=== PATIENT | female | born 1970 | race Caucasian/White ===

== ENCOUNTER 2020-12-27 12:52 | Emergency (ER) | payer OTHER ==
[2020-12-27] MEDS: Acetaminophen/HYDROcodone 325-5 MG Tab PO ONE (13:34)
--- NOTE | 2020-12-27 13:45 | EDM.PDOC ---
ED HPI GENERAL MEDICAL PROBLEM - General Chief Complaint: Upper Extremity Injury/Pain Stated Complaint: LT ARM Time Seen by Provider: 12/27/20 13:27 Source of Information: Reports: Patient History Limitations: Reports: No Limitations - History of Present Illness INITIAL COMMENTS - FREE TEXT/NARRATIVE: Helena is a 50 year old female who presents to ER with complaints of left arm pain after a fall. Patient states was up on a step stool taking a picture off the wall and lost her balance and fell. Admits used her arm to brace her fall and had instant pain. No other pain elsewhere. Applied ice and braced arm enroute here. Onset: Today Duration: Hour(s):, Constant Location: Reports: Upper Extremity, Left Quality: Reports: Ache, Throbbing Severity: Severe Improves with: Reports: Rest Worsens with: Reports: Movement Context: Reports: Trauma Associated Symptoms: Reports: No Other Symptoms Treatments PSYCHIATRIC AIDE: Reports: Cold Therapy Left Lower Arm Pain Score (Numeric/FACES): 7 - Related Data Allergies Allergy/AdvReac Type Severity Reaction Status Date / Time No Known Allergies Allergy Verified 12/27/20 13:03 Home Meds: Home Meds Cyclobenzaprine [Flexeril] 10 mg PO TID PRN #30 tab 12/27/20 [Rx] Past Medical History - Past Health History Medical/Surgical History: Denies Medical/Surgical History - Past Surgical History Female Surgical History: Reports: Hysterectomy Social & Family History - Tobacco Use Tobacco Use Status *Q: Never Tobacco User Review of Systems - Review of Systems Review Of Systems: See Below Constitutional: Reports: No Symptoms Eyes: Reports: No Symptoms Ears: Reports: No Symptoms Nose: Reports: No Symptoms Mouth/Throat: Reports: No Symptoms Respiratory: Reports: No Symptoms Cardiovascular: Reports: No Symptoms GI/Abdominal: Reports: No Symptoms Musculoskeletal: Reports: Arm Pain, Joint Pain Skin: Reports: No Symptoms Neurological: Reports: No Symptoms ED EXAM, GENERAL - Physical Exam Exam: See Below Exam Limited By: No Limitations General Appearance: Alert, WD/WN, No Apparent Distress Ears: Normal External Exam, Normal TMs Nose: Normal Inspection, Normal Mucosa, No Blood Throat/Mouth: Normal Inspection, Normal Oropharynx Head: Normocephalic Neck: Normal Inspection, Supple, Non-Tender Respiratory/Chest: No Respiratory Distress, Lungs Clear, Normal Breath Sounds Cardiovascular: Regular Rate, Rhythm, No Edema GI/Abdominal: Normal Bowel Sounds, Soft, Non-Tender Extremities: Arm Pain, Limited Range of Motion, Other (obvious deformity to left forearm) Neurological: Alert, Oriented Skin Exam: Warm, Dry Course - Vital Signs Last Recorded V/S: Last Vital Signs Temp 96.4 F L 12/27/20 12:57 Pulse 70 12/27/20 12:57 Resp 16 12/27/20 12:57 BP 130/80 12/27/20 12:57 Pulse Ox 95 12/27/20 12:57 - Orders/Labs/Meds Orders: Active Orders 24 hr Category Date Time Status Forearm 2V Lt [CR] Stat Exams 12/27/20 13:04 Taken Meds: Medications Discontinued Medications Generic Name Dose Route Start Last Admin Trade Name Holly PRN Reason Stop Dose Admin Hydrocodone Bitart/Acetaminophen 1 tab 12/27/20 13:29 12/27/20 13:34 Acetaminophen/Hydrocodone 325-5 Mg Tab PO 12/27/20 13:30 1 tab ONETIME ONE Administration - Re-Assessments/Exams Free Text/Narrative Re-Assessment/Exam: 12/27/20 1335-Xray positive for displaced distal radial fracture. One step pre- salvador splint applied. [place] given. Contacted [facility] and spoke with team nurse. Will have Dr. Dowling review xrays. 1400-Received call from [facility]. Dr. Dowling does feel will need reduction. Pre-op exam done, patient may proceed with procedure as a category II ASA risk due to age only. Patient advised of plan. [facility] will contact her directly to schedule time for consult tomorrow. Departure - Departure Time of Disposition: 14:10 Disposition: Home, Self-Care 01 Condition: Fair Clinical Impression: Fracture of radius Qualifiers: Encounter type: initial encounter Radius location: distal Fracture type: closed Laterality: left - Discharge Information *PRESCRIPTION DRUG MONITORING PROGRAM REVIEWED*: No *COPY OF PRESCRIPTION DRUG MONITORING REPORT IN PATIENT KRISTOPHER: No Instructions: Radial Fracture Referrals: PCP,Unknown [Primary Care Provider] - Forms: ED Department Discharge Additional Instructions: 1. Elevate arm to reduce swelling 2. Ice frequently today 3. [place] 1-2 tabs every 6 hours for pain 4. Flexeril as needed for back spasms 5. Follow up with Dr. Dowling tomorrow as planned. Sepsis Event Note (ED) - Evaluation Sepsis Screening Result: No Definite Risk - Focused Exam Vital Signs: Vital Signs Temp Pulse Resp BP Pulse Ox 12/27/20 12:57 96.4 F L 70 16 130/80 95 - My Orders Last 24 Hours: My Active Orders 12/27/20 13:04 Forearm 2V Lt [CR] Stat - Assessment/Plan Last 24 Hours: My Active Orders 12/27/20 13:04 Forearm 2V Lt [CR] Stat
== END 2020-12-27 14:20 | disposition home or self-care (01) ==
LOC: CC.ED 12:52
DX: S52.592A Other fractures of lower end of left radius, initial encounter for closed fracture (principal); W18.39XA Other fall on same level, initial encounter
CPT/HCPCS: 73090-LT; 99283-25; A9270-GY

== ENCOUNTER → 2021-07-13 | Day surgery (SDC) | payer OTHER ==
[~2021-07-13] MED LIST: Ketamine 200 MG/20 ML MDV ONE; Lactated Ringers 1,000 ML IV SCH; Lidocaine 2% 5 ML SDV ONE; Propofol 200 MG/20 ML SDV ONE; fentaNYL 100 MCG/2 ML SDV ONE
== END ==
LOC: CC.SDS 10:48
PROVIDERS: ATTEND Family Medicine
DX: K31.7 Polyp of stomach and duodenum (principal); K21.00 Gastro-esophageal reflux disease with esophagitis, without bleeding; K22.70 Barrett's esophagus without dysplasia; I10 Essential (primary) hypertension; E66.01 Morbid (severe) obesity due to excess calories; F41.9 Anxiety disorder, unspecified; F32.A Depression, unspecified; Z79.899 Other long term (current) drug therapy; Z68.41 Body mass index [BMI] 40.0-44.9, adult
CPT/HCPCS: 87081; J2704; J3010; J7120

== ENCOUNTER → 2021-08-23 | Day surgery (SDC) | payer OTHER ==
[~2021-08-23] MED LIST changes: -Ketamine 200 MG/20 ML MDV ONE; +Lidocaine 1% with EPINEPHrine 1:100,000 20 ML MDV SUBCUT ONE; -Lidocaine 2% 5 ML SDV ONE; +Morphine 2 MG/ML SYRINGE IV PRN; +Ondansetron 4 MG/2 ML SDV IVPUSH PRN; -Propofol 200 MG/20 ML SDV ONE; +Sodium Chloride 0.9% 10 ML Syringe FLUSH PRN; +ceFAZolin 1 GM Vial IVPUSH ONE; -fentaNYL 100 MCG/2 ML SDV ONE
[2021-08-23] MEDS: Acetaminophen/oxyCODONE 325-5 MG Tab PO PRN (17:29)
[2021-08-24] MEDS: Acetaminophen/oxyCODONE 325-5 MG Tab PO PRN (03:36)
== END | disposition home or self-care (01) ==
LOC: CC.SDS 08:55
PROVIDERS: ATTEND Surgery
DX: K80.10 Calculus of gallbladder with chronic cholecystitis without obstruction (principal); Z79.899 Other long term (current) drug therapy
CPT/HCPCS: 00790; A9270-GY; J0690; J7030; J7120

== ENCOUNTER 2022-07-03 23:45 | Emergency (ER) | payer OTHER | END 2022-07-04 01:15 | disposition left against medical advice (07) | LOC: CC.ED 23:45 → SUPCPDRO 23:45 → CC.ED 07-04 01:15 | DX: F10.129 Alcohol abuse with intoxication, unspecified (principal); R74.8 Abnormal levels of other serum enzymes; K21.9 Gastro-esophageal reflux disease without esophagitis; Z79.899 Other long term (current) drug therapy; Y90.5 Blood alcohol level of 100-119 mg/100 ml | CPT/HCPCS: 36415; 71045; 80053; 80307; 83605; 83690; 83735; 84484; 85025; 85730; 93005; 99285 ==